=== PATIENT | male | born 1945 | race Caucasian/White ===

== ENCOUNTER → 2016-06-24 | Outpatient (CLI) | payer MEDICARE, OTHER ==
[~2016-06-24] VITALS: Ht 180.3 cm; Wt 106.8 kg
[~2016-06-24] MED LIST: ADVAIR 100/28 DISKU1 IH; AMOXICILLIN 8751 TAB PO; ASPIR-LOW81 MG PO; ASPIRIN 32325 MG/TAB PO; ASPIRIN E.C.325 MG PO; CARDIZEM120 MG PO; CENTRUM SILVER1 TA1 PO; COMBIVENT INH14.7 GM IH; CORDARONE200 MG PO; CORDARONE200 MG/TAB PO; COUMADIN 5MG5 MG/TAB PO; COUMADIN 6MG6 MG/TAB PO; COUMADIN PO; DEMADEX 20MG20 M1 PO; DIGOXIN0.25 MG PO; ELIQUIS 5MG PO; FLECAINIDE PO; FLOVENT 110MCG7.9 GM IH; GUAIFENESIN AND5 ML PO; HYDROCORT CREAM1% TOP; INDERAL PO; KLOR-CON 1010 MEQ PO; LASIX 80MG TABL80 MG PO; LASIX40 MG PO; LEVOTHYROXINE0.05 MG PO; LEVOXYL0.075 MG PO; LISINOPRIL20 MG PO; LISINOPRIL5 MG PO; LOPRESSOR 550 MG/TAB PO; MAG-OX 400400 MG/TAB PO; MEDROL 4MG DOSPA4 MG PO; METHIMAZOLE PO; METOPROLOL25 MG PO; MITIGARE0.6 MG PO; MULTAQ400 MG PO; MVI; NO HOME MEDICATIONS; NORCO 325 MG-51 TAB PO; PERCOCET 325 MG1 TA2 PO; PREDNISONE20 MG PO; PRIL40 PO; PRILOSEC 20MG20 MG PO; SYNTHROID0.05 MG/TA PO; SYNTHROID0.075 MG/T PO; TIKOSYN0.5 MG PO; TOPROL XL 25MG25 MG PO; TOPROL XL50 MG PO; ULORIC40 MG PO; VITAMIN D32000 IU PO; XARELTO20 MG PO; ZYLOPRIM 300MG300 MG PO; [UNRECOGNIZED DRUG - OTHER] PO
[2016-06-24 11:30] VITALS: BP 108/72; PULSE 72
[2016-06-24 12:21] LABS: HEMATOCRIT 37.7 % (42.0-52.0); MEAN CELL VOLUME 79 fl (80.0-100.0); MEAN CORPUSCULAR HGB CONC 31 g/dl (33.0-37.0); MEAN PLATELET VOLUME 9.1 fl (7.4-10.4); PLATELET COUNT 153 K/mm3 (130-400); RED BLOOD COUNT 4.78 M/mm3 (4.20-5.60); REDCELL DISTRIBUTION WIDTH-CV 16.1 % (11.5-14.5); WHITE BLOOD COUNT 6.3 K/mm3 (4.8-10.8)
[2016-06-24 12:28] LABS: HEMOGLOBIN 11.7 g/dl (13.5-18.0); MEAN CORPUSCULAR HEMOGLOBIN 24 pg (27.0-31.0)
[2016-06-24 12:36] LABS: INR 1.4 (0.8-3.0); PROTHROMBIN TIME 15.2 SECONDS (9.7-12.8)
[2016-06-24 12:41] LABS: CALCIUM 8.7 mg/dL (8.4-10.2); CREATININE, serum 0.85 mg/dL (0.66-1.25); POTASSIUM 3.8 mmol/L (3.4-5.0)
[2016-06-24 13:15] VITALS: BP 110/71; PULSE 71
[2016-06-24 13:20] VITALS: BP 114/81; PULSE 74
[2016-06-24 13:30] VITALS: BP 117/82; PULSE 72
[2016-06-24 13:45] VITALS: BP 107/56; PULSE 77
== END ==
LOC: COL.RAD 11:12
PROVIDERS: Internal Medicine Interventional Cardiology
DX: I08.1 Rheumatic disorders of both mitral and tricuspid valves (principal); R94.31 Abnormal electrocardiogram [ECG] [EKG]
CPT/HCPCS: J2250; J2704

== ENCOUNTER → 2016-07-04 | Outpatient (CLI) | payer MEDICARE, OTHER ==
[2016-07-04 10:09] LABS: THYROID STIMULATING HORMONE 4.06 uIU/mL (0.465-4.680)
== END ==
LOC: COL.LAB 07:31
PROVIDERS: Internal Medicine Endocrinology, Diabetes & Metabolism
DX: E89.0 Postprocedural hypothyroidism (principal)

== ENCOUNTER → 2016-07-06 | Outpatient (CLI) | payer MEDICARE, OTHER | LOC: COL.VAS 08:49 | DX: I08.1 Rheumatic disorders of both mitral and tricuspid valves (principal); R94.39 Abnormal result of other cardiovascular function study; R06.02 Shortness of breath ==

== ENCOUNTER 2016-07-11 07:05 | Day surgery (SDC) | payer MEDICARE, OTHER ==
[~2016-07-11] VITALS: Ht 180.3 cm; Wt 104.5 kg
[~2016-07-11 07:05] MED LIST changes: -HYDROCORT CREAM1% TOP; -MITIGARE0.6 MG PO; -SYNTHROID0.075 MG/T PO
[2016-07-11] MEDS ORDERED: SYNTHROID0.075 MG/T PO (07:51)
[2016-07-11] MEDS ORDERED: MITIGARE0.6 MG PO (07:53)
[2016-07-11 07:54] LABS: POTASSIUM 3.9 mmol/L (3.4-5.0)
[2016-07-11 08:01] VITALS: BP 123/77; PULSE 90
[2016-07-11 08:07] LABS: INR 1.4 (0.8-3.0); PROTHROMBIN TIME 15.5 SECONDS (9.7-12.8)
[2016-07-11 08:27] LABS: THYROID STIMULATING HORMONE 4.72 uIU/mL (0.465-4.680)
[2016-07-11 10:57] VITALS: BP 109/69; PULSE 60
[2016-07-11] MEDS ORDERED: HYDROCORT CREAM1% TOP (11:26)
[2016-07-11 11:35] VITALS: BP 115/68; PULSE 65
== END 2016-07-11 11:48 | disposition home or self-care (01) ==
LOC: EUO 07:05
PROVIDERS: Internal Medicine Interventional Cardiology
DX: I48.91 Unspecified atrial fibrillation (principal); R06.02 Shortness of breath; I27.2 Other secondary pulmonary hypertension; R60.0 Localized edema; I05.0 Rheumatic mitral stenosis; Z95.818 Presence of other cardiac implants and grafts
CPT/HCPCS: G9654; J2704; J7030

== ENCOUNTER → 2016-08-09 | Outpatient (CLI) | payer MEDICARE, OTHER ==
[~2016-08-09] MED LIST changes: +HYDROCORT CREAM1% TOP; +MITIGARE0.6 MG PO; +SYNTHROID0.075 MG/T PO
[2016-08-09 08:21] LABS: THYROID STIMULATING HORMONE 3.5 uIU/mL (0.465-4.680)
== END ==
LOC: COL.LAB 06:53
PROVIDERS: Internal Medicine Endocrinology, Diabetes & Metabolism
DX: E89.0 Postprocedural hypothyroidism (principal)

== ENCOUNTER → 2016-10-10 | Outpatient (CLI) | payer MEDICARE, OTHER ==
[2016-10-10 09:18] LABS: THYROID STIMULATING HORMONE 4.1 uIU/mL (0.465-4.680)
== END ==
LOC: COL.LAB 07:42
PROVIDERS: Internal Medicine Endocrinology, Diabetes & Metabolism
DX: E89.0 Postprocedural hypothyroidism (principal)

== ENCOUNTER → 2017-02-28 | Outpatient (CLI) | payer MEDICARE, OTHER ==
[2017-02-28 07:26] LABS: THYROID STIMULATING HORMONE 1.86 uIU/mL (0.465-4.680)
== END ==
LOC: COL.LAB 06:17
PROVIDERS: Internal Medicine Endocrinology, Diabetes & Metabolism
DX: E89.0 Postprocedural hypothyroidism (principal)

== ENCOUNTER → 2017-06-22 | Outpatient (CLI) | payer MEDICARE, OTHER ==
[2017-06-22 07:10] LABS: MEAN CELL VOLUME 73 fl (80.0-100.0); MEAN CORPUSCULAR HGB CONC 29 g/dl (33.0-37.0); MEAN PLATELET VOLUME 9.2 fl (7.4-10.4); PLATELET COUNT 164 K/mm3 (130-400); RED BLOOD COUNT 4.32 M/mm3 (4.20-5.60); REDCELL DISTRIBUTION WIDTH-CV 17.6 % (11.5-14.5)
[2017-06-22 07:17] LABS: HEMATOCRIT 31.5 % (42.0-52.0); MEAN CORPUSCULAR HEMOGLOBIN 21 pg (27.0-31.0)
[2017-06-22 07:28] LABS: ALBUMIN 4.1 gm/dL (3.5-5.0); BILIRUBIN,TOTAL 0.5 mg/dL (0.0-1.0); CALCIUM 8.7 mg/dL (8.4-10.2); CREATININE, serum 1.46 mg/dL (0.66-1.25); POTASSIUM 4.4 mmol/L (3.4-5.0); TOTAL PROTEIN 6.7 gm/dL (6.4-8.2)
[2017-06-22 07:58] LABS: THYROID STIMULATING HORMONE 0.898 uIU/mL (0.465-4.680)
== END ==
LOC: COL.LAB 06:17
PROVIDERS: Internal Medicine Endocrinology, Diabetes & Metabolism
DX: E89.0 Postprocedural hypothyroidism (principal); E06.3 Autoimmune thyroiditis; I48.91 Unspecified atrial fibrillation; F41.0 Panic disorder [episodic paroxysmal anxiety]

== ENCOUNTER → 2018-02-07 | Outpatient (CLI) | payer MEDICARE, OTHER ==
[2018-02-07 08:23] LABS: THYROID STIMULATING HORMONE 0.535 uIU/mL (0.465-4.680)
== END ==
LOC: COL.LAB 07:02
PROVIDERS: Internal Medicine Endocrinology, Diabetes & Metabolism
DX: E03.9 Hypothyroidism, unspecified (principal)

== ENCOUNTER → 2018-10-02 | Outpatient (CLI) | payer MEDICARE, OTHER ==
[2018-10-02 07:39] LABS: BASO % 0.4 % (0.0-2.0); EOS # 0.1 (0.0-0.7); EOS % 2.1 % (0-4.0); GRAN # 3.6 (1.4-6.5); HEMATOCRIT 43.2 % (42.0-52.0); HEMOGLOBIN 14.5 g/dl (13.5-18.0); LYMPH % 18.6 % (20.0-51.0); MEAN CELL VOLUME 89 fl (80.0-100.0); MEAN CORPUSCULAR HEMOGLOBIN 30 pg (27.0-31.0); MEAN CORPUSCULAR HGB CONC 34 g/dl (33.0-37.0); MEAN PLATELET VOLUME 8.7 fl (7.4-10.4); MONO # 0.4 (0.1-0.6); MONO % 8.5 % (1.7-9.3); PLATELET COUNT 120 K/mm3 (130-400); RED BLOOD COUNT 4.87 M/mm3 (4.20-5.60); REDCELL DISTRIBUTION WIDTH-CV 13.2 % (11.5-14.5)
[2018-10-02 07:55] LABS: ALBUMIN 4.4 gm/dL (3.5-5.0); BILIRUBIN,TOTAL 0.7 mg/dL (0.0-1.0); CALCIUM 9.3 mg/dL (8.4-10.2); CHOLESTEROL RISK RATIO 3.2; CREATININE, serum 0.87 (0.66-1.25); POTASSIUM 4.5 mmol/L (3.4-5.0); TOTAL PROTEIN 7.8 gm/dL (6.4-8.2)
[2018-10-02 08:30] LABS: PSA-TOTAL 3.5 ng/mL (0-4)
[2018-10-02 09:22] LABS: THYROID STIMULATING HORMONE 1.33 uIU/mL (0.465-4.680)
== END ==
LOC: COL.LAB 07:11
PROVIDERS: Emergency Medicine
DX: Z12.6 Encounter for screening for malignant neoplasm of bladder (principal); I48.1 Persistent atrial fibrillation; E05.90 Thyrotoxicosis, unspecified without thyrotoxic crisis or storm; E04.1 Nontoxic single thyroid nodule; J44.9 Chronic obstructive pulmonary disease, unspecified; Z95.2 Presence of prosthetic heart valve; Z79.899 Other long term (current) drug therapy
CPT/HCPCS: G0103

== ENCOUNTER → 2019-05-08 | Outpatient (CLI) | payer MEDICARE, OTHER ==
[2019-05-08 12:35] LABS: HEMOGLOBIN 13.2 g/dl (13.5-18.0); MEAN CELL VOLUME 86 fl (80.0-100.0); MEAN CORPUSCULAR HEMOGLOBIN 28 pg (27.0-31.0); MEAN CORPUSCULAR HGB CONC 33 g/dl (33.0-37.0); MEAN PLATELET VOLUME 9.1 fl (7.4-10.4); PLATELET COUNT 162 K/mm3 (130-400); RED BLOOD COUNT 4.67 M/mm3 (4.20-5.60)
[2019-05-08 12:40] LABS: ALBUMIN 4.4 gm/dL (3.5-5.0); BILIRUBIN,TOTAL 0.7 mg/dL (0.0-1.0); CALCIUM 8.8 mg/dL (8.4-10.2); CREATININE, serum 0.9 (0.66-1.25); POTASSIUM 4.3 mmol/L (3.4-5.0); TOTAL PROTEIN 7.6 gm/dL (6.4-8.2)
== END ==
LOC: COL.LAB 11:20
PROVIDERS: Surgery
DX: Z01.818 Encounter for other preprocedural examination (principal)

== ENCOUNTER → 2019-06-10 | Outpatient (CLI) | payer MEDICARE, OTHER | LOC: COL.LAB 08:14 | DX: E89.0 Postprocedural hypothyroidism (principal) ==

== ENCOUNTER 2020-07-13 12:11 | Emergency (ER) | payer MEDICARE, OTHER ==
[~2020-07-13] VITALS: Ht 180.3 cm; Wt 94.5 kg
[~2020-07-13 12:11] MED LIST changes: -PRIL40 PO
[2020-07-13 12:41] VITALS: TEMP 98.1
[2020-07-13 13:42] LABS: BASO % 0.3 % (0.0-2.0); EOS % 0.2 % (0-4.0); GRAN # 8.2 (1.4-6.5); GRAN % 81.5 % (42.2-75.2); HEMOGLOBIN 11.4 g/dl (13.5-18.0); LYMPH # 0.7 (1.2-3.4); LYMPH % 7.1 % (20.0-51.0); MEAN CELL VOLUME 77 fl (80.0-100.0); MEAN CORPUSCULAR HEMOGLOBIN 25 pg (27.0-31.0); MEAN CORPUSCULAR HGB CONC 32 g/dl (33.0-37.0); MEAN PLATELET VOLUME 8.7 fl (7.4-10.4); MONO # 1.1 (0.1-0.6); MONO % 10.6 % (1.7-9.3); PLATELET COUNT 188 K/mm3 (130-400); RED BLOOD COUNT 4.63 M/mm3 (4.20-5.60)
[2020-07-13 13:55] LABS: ALANINE AMINOTRANSFERASE 16 U/L (4-49); ALBUMIN 4.2 gm/dL (3.5-5.0); ALKALINE PHOSPHATASE 68 U/L (50-136); ANION GAP 8 mmol/L (7-16); AST,SGOT 20 U/L (15-37); BILIRUBIN,TOTAL 1.3 mg/dL (0.0-1.0); BLOOD UREA NITROGEN 16 mg/dL (9-20); CALCIUM 8.6 mg/dL (8.4-10.2); CARBON DIOXIDE 28 mmol/L (22-30); CHLORIDE 97 mmol/L (98-107); GLUCOSE 127 mg/dL (74-106); HEMATOCRIT 35.5 % (42.0-52.0); POTASSIUM 3.7 mmol/L (3.4-5.0); SODIUM 132 mmol/L (137-145); TOTAL PROTEIN 7.2 gm/dL (6.4-8.2)
[2020-07-13 14:11] LABS: TROPONIN-I < 0.012 ng/mL (0.000-0.035)
[2020-07-13 15:47] VITALS: BP 141/78; PULSE 73
== END 2020-07-13 15:47 | disposition home or self-care (01) ==
LOC: COL.ER 12:11
PROVIDERS: Physician Assistant
DX: R07.89 Other chest pain (principal); I48.91 Unspecified atrial fibrillation; I27.20 Pulmonary hypertension, unspecified; Z79.01 Long term (current) use of anticoagulants
CPT/HCPCS: Q9967

== ENCOUNTER 2020-08-04 09:13 | Outpatient (CLI) | payer MEDICARE, OTHER ==
[~2020-08-04] VITALS: Ht 180.3 cm; Wt 97.0 kg
[2020-08-04] VITALS (12 sets, daily range): BP systolic 107–146; BP diastolic 68–89; PULSE 63–72; TEMP 98.5
[2020-08-04 10:05] LABS: HEMOGLOBIN 10.8 g/dl (13.5-18.0); MEAN CELL VOLUME 78 fl (80.0-100.0); MEAN CORPUSCULAR HEMOGLOBIN 24 pg (27.0-31.0); MEAN CORPUSCULAR HGB CONC 31 g/dl (33.0-37.0); MEAN PLATELET VOLUME 8.7 fl (7.4-10.4); PLATELET COUNT 172 K/mm3 (130-400); REDCELL DISTRIBUTION WIDTH-CV 15.6 % (11.5-14.5)
[2020-08-04] MEDS ORDERED: REVATIO20 MG PO (10:08)
[2020-08-04 10:11] LABS: HEMATOCRIT 35.3 % (42.0-52.0)
[2020-08-04 10:12] LABS: CALCIUM 8.3 mg/dL (8.4-10.2); CREATININE, serum 0.73 (0.66-1.25); POTASSIUM 4.5 mmol/L (3.4-5.0)
[2020-08-04 10:13] LABS: INR 1.1 (0.8-3.0); PROTHROMBIN TIME 12.4 SECONDS (9.7-12.8)
--- NOTE | 2020-08-04 10:53 | NUR ---
1051 - SANDIP JULES,CLICKING MACHINE OPERATOR, DA, BAG TESTER & THIS RN AT BEDSIDE FOR PROCEDURE. TIME OUT COMPLETED. 1053 - CHARLA PROBE INSERTED 1102 - CHARLA PROBE REMOVED 1105 - CLICKING MACHINE OPERATOR TURNS RECOVERY OVER TO THIS RN.
--- NOTE | 2020-08-04 11:20 | NUR ---
Pt is awake and alert after CHARLA. pt care assumed from Kay GORDILLO, bs report received. Pt aware of POC. Water given, no trouble swallowing. wctm.
[2020-08-04] MEDS ORDERED: ALDACTONE 25MG25 M1 PO (14:23)
[2020-08-04] MEDS ORDERED: KLOR-CON 1010 MEQ PO (14:24)
--- NOTE | 2020-08-04 14:40 | NUR ---
Pt ready for discharge. Dr. Guerra has been in to discuss test result and poc with pt who verbalizes understanding. The patient and I have reviewed all written instructions and again the pt has no questions at his departure. IV is dc'd with cath intact, dressing applied. Pt to exit via wheelchair. Johnna Dill here to pick pt up.
== END 2020-08-04 14:45 | disposition home or self-care (01) ==
LOC: COL.RAD
PROVIDERS: Internal Medicine Cardiovascular Disease
DX: I34.2 Nonrheumatic mitral (valve) stenosis (principal); I51.7 Cardiomegaly
CPT/HCPCS: J2704

== ENCOUNTER 2020-08-23 06:58 | Emergency (ER) | payer MEDICARE, OTHER ==
[~2020-08-23] VITALS: Ht 180.3 cm; Wt 94.1 kg
[~2020-08-23 06:58] MED LIST changes: +ALDACTONE 25MG25 M1 PO; +REVATIO20 MG PO
[2020-08-23 07:06] VITALS: TEMP 97.7
[2020-08-23 07:25] LABS: BASO % 0.4 % (0.0-2.0); EOS # 0.1 (0.0-0.7); EOS % 1.3 % (0-4.0); GRAN % 72.4 % (42.2-75.2); LYMPH # 1.1 (1.2-3.4); LYMPH % 15.2 % (20.0-51.0); MEAN CELL VOLUME 78 fl (80.0-100.0); MEAN CORPUSCULAR HEMOGLOBIN 24 pg (27.0-31.0); MEAN CORPUSCULAR HGB CONC 31 g/dl (33.0-37.0); MEAN PLATELET VOLUME 8.4 fl (7.4-10.4); MONO # 0.7 (0.1-0.6); MONO % 10.3 % (1.7-9.3); PLATELET COUNT 168 K/mm3 (130-400); REDCELL DISTRIBUTION WIDTH-CV 15.9 % (11.5-14.5)
[2020-08-23 07:35] LABS: CALCIUM 8.3 mg/dL (8.4-10.2); CREATININE, serum 0.74 (0.66-1.25); POTASSIUM 3.9 mmol/L (3.4-5.0)
[2020-08-23 07:39] LABS: PROTHROMBIN TIME 11.7 SECONDS (9.7-12.8)
[2020-08-23 07:42] LABS: PARTIAL THROMBOPLASTIN TIME 28.6 SECONDS (26.0-37.0)
[2020-08-23 08:09] LABS: TROPONIN-I < 0.012 ng/mL (0.000-0.035)
[2020-08-23] MEDS ORDERED: ELIQUIS 5MG PO (08:51)
[2020-08-23] MEDS ORDERED: CLEOCIN HC150 MG/CAP PO (09:06)
[2020-08-23] MEDS ORDERED: TYLENOL 325MG325 MG PO (09:06)
[2020-08-23 09:15] VITALS: BP 122/69; PULSE 67
== END 2020-08-23 09:15 | disposition home or self-care (01) ==
LOC: COL.ER 06:58
PROVIDERS: Emergency Medicine
DX: R79.1 Abnormal coagulation profile (principal); M25.562 Pain in left knee; I48.92 Unspecified atrial flutter
CPT/HCPCS: Q9967

== ENCOUNTER → 2020-08-24 | Outpatient (CLI) | payer MEDICARE, OTHER ==
[~2020-08-24] MED LIST changes: +CLEOCIN HC150 MG/CAP PO; +TYLENOL 325MG325 MG PO
== END ==
LOC: COL.VAS 08:35
DX: M79.662 Pain in left lower leg (principal); R79.1 Abnormal coagulation profile

== ENCOUNTER 2020-08-27 05:58 | Emergency (ER) | payer MEDICARE, OTHER ==
[~2020-08-27] VITALS: Ht 180.3 cm; Wt 94.1 kg
[2020-08-27 06:12] VITALS: BP 125/66; TEMP 97.2
== END 2020-08-27 07:25 | disposition home or self-care (01) ==
LOC: COL.ER 05:58
DX: I82.432 Acute embolism and thrombosis of left popliteal vein (principal); I27.20 Pulmonary hypertension, unspecified; Z95.4 Presence of other heart-valve replacement; Z95.9 Presence of cardiac and vascular implant and graft, unspecified; Z79.01 Long term (current) use of anticoagulants; Z79.890 Hormone replacement therapy

== ENCOUNTER → 2021-02-03 | Outpatient (CLI) | payer MEDICARE, OTHER ==
[2021-02-03 13:54] LABS: ALBUMIN 4.2 gm/dL (3.5-5.0); CALCIUM 8.2 mg/dL (8.4-10.2); CHOLESTEROL RISK RATIO 3.4; CREATININE, serum 0.82 (0.66-1.25); POTASSIUM 3.7 mmol/L (3.4-5.0); TOTAL PROTEIN 7.3 gm/dL (6.4-8.2)
[2021-02-03 15:21] LABS: TSH w REFLEX 2.303 uIU/mL (0.350-4.940)
[2021-02-03 23:40] LABS: HEPATITIS C VIRUS ANTIBODY Negative (Negative)
== END ==
LOC: COL.LAB 12:45
DX: Z00.00 Encounter for general adult medical examination without abnormal findings (principal); E89.0 Postprocedural hypothyroidism
CPT/HCPCS: 87522

== ENCOUNTER 2021-11-13 13:40 | Emergency (ER) | payer MEDICARE, OTHER ==
[~2021-11-13] VITALS: Ht 180.3 cm; Wt 97.7 kg
[2021-11-13 13:53] VITALS: TEMP 98.5
[2021-11-13 14:17] LABS: COLLECTION METHOD CLEAN CATCH
[2021-11-13 14:17] LABS: HEMATOCRIT 41.8 % (42.0-52.0); HEMOGLOBIN 13.7 g/dl (13.5-18.0); MEAN CELL VOLUME 82 fl (80.0-100.0); MEAN CORPUSCULAR HEMOGLOBIN 27 pg (27-31); MEAN CORPUSCULAR HGB CONC 33 g/dl (33.0-37.0); MEAN PLATELET VOLUME 8.5 fl (7.4-10.4); PLATELET COUNT 163 K/mm3 (130-400); RED BLOOD COUNT 5.13 M/mm3 (4.20-5.60); REDCELL DISTRIBUTION WIDTH-CV 15.3 % (11.5-14.5)
[2021-11-13 14:24] LABS: PH 6 (5-8); SQUAMOUS EPITHELIAL 0-2 /hpf (0-10); URINE APPEARANCE Clear (CLEAR/HAZY); URINE BACTERIA None Seen /hpf (NONE SEEN); URINE BILIRUBIN Negative (NEGATIVE); URINE BLOOD 1+ (NEGATIVE); URINE COLOR Amber (YELLOW); URINE GLUCOSE Negative (NEGATIVE); URINE KETONE Negative (NEGATIVE); URINE LEUKOCYTE ESTERASE Negative (NEGATIVE); URINE NITRATE Negative (NEGATIVE); URINE PROTEIN(semi-quant) 1+ (NEGATIVE); URINE UROBILINOGEN >=4.0 (NEGATIVE)
[2021-11-13 14:36] LABS: BILIRUBIN,TOTAL 1.6 mg/dL (0.2-1.2); C-REACTIVE PROTEIN 3.26 mg/dL (0.00-0.50); CALCIUM 8.8 mg/dL (8.4-10.2); CREATININE, serum 0.79 mg/dL (0.72-1.25); POTASSIUM 4.1 mmol/L (3.5-4.5); TOTAL PROTEIN 7.9 gm/dL (6.2-8.1)
[2021-11-13 14:54] LABS: BAND 21 % (0-10); LYMPHOCYTE 5 % (20.0-51.0); NEUTROPHILS 68 % (42.0-75.2); PLATELET ESTIMATE NORMAL (NORMAL)
[2021-11-13] MEDS ORDERED: AMOXICILLIN 8751 TAB PO (16:27)
[2021-11-13 16:46] VITALS: BP 148/78; PULSE 85
== END 2021-11-13 16:53 | disposition home or self-care (01) ==
LOC: COL.ER 13:40
PROVIDERS: Nurse Practitioner Primary Care
DX: K40.90 Unilateral inguinal hernia, without obstruction or gangrene, not specified as recurrent (principal); K57.92 Diverticulitis of intestine, part unspecified, without perforation or abscess without bleeding; D72.829 Elevated white blood cell count, unspecified
CPT/HCPCS: J2405; J7030; Q9967

== ENCOUNTER 2021-12-11 18:18 | Outpatient (RCR) | payer MEDICARE, OTHER ==
[~2021-12-11] VITALS: Ht 180.3 cm; Wt 85.0 kg
[~2021-12-11 18:18] MED LIST changes: +COLCRYS0.6 MG PO; +DIFLUCAN200 MG PO; +K-DUR 10 MEQ T10 MEQ PO; +MAXIPIME2 GM IV
[2021-12-12] MEDS ORDERED: LUNESTA 1MG TAB1 MG (07:41)
[2021-12-21 08:56] VITALS: BP 121/54; PULSE 65; TEMP 98.3
[2021-12-22 11:40] VITALS: BP 110/62; PULSE 77; TEMP 98.7
== END 2021-12-22 12:41 ==
LOC: EUO 12-21 07:00
DX: K57.20 Diverticulitis of large intestine with perforation and abscess without bleeding (principal)

== ENCOUNTER 2021-12-14 07:00 | Outpatient (RCR) | payer MEDICARE, OTHER ==
[2021-12-01 07:11] VITALS: BP 125/70; PULSE 76; TEMP 98.2
[2021-12-01 18:19] VITALS: BP 124/70; PULSE 83; TEMP 98.5
[2021-12-02 07:34] VITALS: BP 112/67; PULSE 61; TEMP 97.9
[2021-12-03 07:26] VITALS: BP 108/66; PULSE 72; TEMP 98.2
[2021-12-03 18:10] VITALS: BP 110/59; PULSE 80; TEMP 97.6
[2021-12-03 18:33] LABS: HEMOGLOBIN 10.7 g/dl (13.5-18.0); MEAN CELL VOLUME 83 fl (80.0-100.0); MEAN CORPUSCULAR HEMOGLOBIN 27 pg (27-31); MEAN CORPUSCULAR HGB CONC 32 g/dl (33.0-37.0); MEAN PLATELET VOLUME 8.6 fl (7.4-10.4); PLATELET COUNT 181 K/mm3 (130-400); RED BLOOD COUNT 3.99 M/mm3 (4.20-5.60); REDCELL DISTRIBUTION WIDTH-CV 15.2 % (11.5-14.5)
[2021-12-03 18:36] LABS: HEMATOCRIT 33.2 % (42.0-52.0)
[2021-12-03 18:48] LABS: CALCIUM 8.3 mg/dL (8.4-10.2); CREATININE, serum 0.71 mg/dL (0.72-1.25); POTASSIUM 4.1 mmol/L (3.5-4.5)
[2021-12-04 07:19] VITALS: BP 120/75; PULSE 66; TEMP 94.5
[2021-12-05 07:11] VITALS: BP 125/66; PULSE 74; TEMP 97.7
[2021-12-06 07:23] VITALS: BP 115/68; PULSE 84; TEMP 97.7
[2021-12-06 07:23] LABS: HEMOGLOBIN 10.5 g/dl (13.5-18.0); MEAN CELL VOLUME 83 fl (80.0-100.0); MEAN CORPUSCULAR HEMOGLOBIN 27 pg (27-31); MEAN CORPUSCULAR HGB CONC 33 g/dl (33.0-37.0); PLATELET COUNT 149 K/mm3 (130-400); RED BLOOD COUNT 3.83 M/mm3 (4.20-5.60); REDCELL DISTRIBUTION WIDTH-CV 15.4 % (11.5-14.5)
[2021-12-06 07:24] LABS: HEMATOCRIT 31.8 % (42.0-52.0)
[2021-12-06 07:41] LABS: BILIRUBIN,TOTAL 0.7 mg/dL (0.2-1.2); C-REACTIVE PROTEIN 6.31 mg/dL (0.00-0.50); CALCIUM 8.5 mg/dL (8.4-10.2); CREATININE, serum 0.67 mg/dL (0.72-1.25); POTASSIUM 3.6 mmol/L (3.5-4.5); TOTAL PROTEIN 6.7 gm/dL (6.2-8.1)
[2021-12-06 08:06] LABS: ERYTHROCYTE SEDIMENTATION RATE 24 mm/hr (0-30)
[2021-12-06 18:14] VITALS: BP 114/67; PULSE 84; TEMP 97.9
[2021-12-07 07:43] VITALS: BP 100/66; PULSE 68
[2021-12-07 18:26] VITALS: BP 111/59; PULSE 77; TEMP 98.5
[2021-12-08 07:16] VITALS: BP 107/57; PULSE 85; TEMP 97.6
[2021-12-08 18:35] VITALS: BP 113/69; PULSE 78; TEMP 98.4
[2021-12-09 08:35] VITALS: BP 106/68; PULSE 74; TEMP 97.9
[2021-12-10 07:26] VITALS: BP 105/72; PULSE 90; TEMP 97.4
[2021-12-11 07:31] VITALS: BP 112/67; PULSE 73; TEMP 98
[2021-12-12 07:34] VITALS: BP 109/70; PULSE 77; TEMP 97.8
[2021-12-12 18:47] VITALS: BP 97/62; PULSE 95; TEMP 98
[2021-12-13 07:27] VITALS: BP 106/51; PULSE 78; TEMP 98.4
[2021-12-13 18:26] LABS: HEMOGLOBIN 10.3 g/dl (13.5-18.0); MEAN CELL VOLUME 79 fl (80.0-100.0); MEAN CORPUSCULAR HEMOGLOBIN 27 pg (27-31); MEAN CORPUSCULAR HGB CONC 33 g/dl (33.0-37.0); MEAN PLATELET VOLUME 8.7 fl (7.4-10.4); PLATELET COUNT 193 K/mm3 (130-400); RED BLOOD COUNT 3.88 M/mm3 (4.20-5.60); REDCELL DISTRIBUTION WIDTH-CV 14.9 % (11.5-14.5)
[2021-12-13 18:28] VITALS: BP 117/69; PULSE 73; TEMP 99.4
[2021-12-13 18:31] LABS: HEMATOCRIT 30.8 % (42.0-52.0)
[2021-12-13 18:37] LABS: CALCIUM 8.5 mg/dL (8.4-10.2); CREATININE, serum 0.69 mg/dL (0.72-1.25); POTASSIUM 3.1 mmol/L (3.5-4.5)
[~2021-12-14] VITALS: Ht 180.3 cm; Wt 92.5 kg
[~2021-12-14 07:00] MED LIST changes: +LUNESTA 1MG TAB1 MG
[2021-12-14 07:06] LABS: CLOSTRIDIUM DIFF A/B POS
[2021-12-14 07:09] LABS: CLOSTRIDIUM DIFF A/B INTERP Toxigenic C.diff POS
[2021-12-14 07:58] VITALS: BP 108/69; PULSE 82; TEMP 98.6
[2021-12-14 18:09] VITALS: BP 97/75; PULSE 69; TEMP 98.8
[2021-12-14 18:10] VITALS: BP 98/72; PULSE 72; TEMP 98.6
== END 2021-12-19 | disposition home or self-care (01) ==
LOC: EUO
PROVIDERS: Internal Medicine; Personal Emergency Response Attendant; Surgery
DX: Z79.899 Other long term (current) drug therapy (principal)
CPT/HCPCS: J0692

== ENCOUNTER 2022-01-14 08:19 | Outpatient (CLI) | payer MEDICARE, OTHER ==
[~2022-01-14] VITALS: Ht 180.3 cm; Wt 89.9 kg
[2022-01-14 08:50] VITALS: BP 117/65; PULSE 54; TEMP 98.7
[2022-01-14] MEDS ORDERED: ALDACTONE 25MG25 M1 PO (09:17)
[2022-01-14] MEDS ORDERED: LASIX 40MG TABL40 MG PO (09:18)
[2022-01-14 09:19] LABS: BASO % 0.4 % (0.0-2.0); EOS # 0.1 K/mm3 (0.0-0.7); EOS % 1.3 % (0.0-4.0); GRAN # 5.2 K/mm3 (1.4-6.5); GRAN % 76.8 % (42.2-75.2); LYMPH # 0.6 K/mm3 (1.2-3.4); LYMPH % 8.6 % (20.0-51.0); MEAN CELL VOLUME 84 fl (80.0-100.0); MEAN CORPUSCULAR HEMOGLOBIN 27 pg (27-31); MEAN CORPUSCULAR HGB CONC 33 g/dl (33.0-37.0); MEAN PLATELET VOLUME 8.8 fl (7.4-10.4); MONO # 0.8 K/mm3 (0.1-0.6); MONO % 12.5 % (1.7-9.3); PLATELET COUNT 148 K/mm3 (130-400); RED BLOOD COUNT 3.65 M/mm3 (4.20-5.60); REDCELL DISTRIBUTION WIDTH-CV 18.8 % (11.5-14.5)
[2022-01-14] MEDS ORDERED: K-DUR 10 MEQ T10 MEQ PO (09:19)
[2022-01-14 09:20] LABS: HEMATOCRIT 30.8 % (42.0-52.0)
[2022-01-14 09:21] LABS: INR 1.5 (0.8-3.0); PROTHROMBIN TIME 17.2 SECONDS (9.7-12.8)
[2022-01-14 09:29] LABS: CALCIUM 8.6 mg/dL (8.4-10.2); CREATININE, serum 0.78 mg/dL (0.72-1.25)
[2022-01-14 10:30] VITALS: BP 97/58; PULSE 52
--- NOTE | 2022-01-14 10:30 | NUR ---
Pt care assumed, report received from April RN. Pt is awake and alert, using cell phone, pwd, resp reg and unlabored. pt aware of poc for monitoring for about 1 hour post procedure. Aniyah, pt's sig other, brought to bedside.
[2022-01-14] MEDS ORDERED: ASPIRIN E.C. 8181 MG PO (10:35)
[2022-01-14 10:45] VITALS: BP 104/62; PULSE 51
[2022-01-14 11:00] VITALS: BP 109/60; PULSE 51
[2022-01-14 11:15] VITALS: BP 115/60; PULSE 54
--- NOTE | 2022-01-14 11:30 | NUR ---
Pt is ready for discharge. I have reviewed dc/rx and fu instructions with pt and Aniyah. Pt verbalized understanding. to exit via wheelchair.
== END 2022-01-14 12:01 | disposition home or self-care (01) ==
LOC: COL.RAD 08:19
PROVIDERS: Internal Medicine Cardiovascular Disease
DX: I08.1 Rheumatic disorders of both mitral and tricuspid valves (principal); Z95.2 Presence of prosthetic heart valve

== ENCOUNTER 2022-07-19 07:55 | Outpatient (RCR) | payer MEDICARE, OTHER ==
[~2022-07-19] VITALS: Ht 180.3 cm; Wt 95.0 kg
[~2022-07-19 07:55] MED LIST changes: +ASPIRIN E.C. 8181 MG PO; +BENICAR40 MG PO; +LASIX 40MG TABL40 MG PO
[2022-07-19 08:44] VITALS: BP 137/81; PULSE 77; TEMP 98.3
== END 2022-07-19 15:52 | disposition still patient (30) ==
LOC: EUO 07:55
DX: Z51.81 Encounter for therapeutic drug level monitoring (principal)
CPT/HCPCS: J1756

== ENCOUNTER 2022-07-29 08:00 | Outpatient (RCR) | payer MEDICARE, OTHER ==
[2022-07-21 08:00] VITALS: BP 127/75; PULSE 65; TEMP 97.7
[2022-07-25 08:09] VITALS: BP 130/73; PULSE 63; TEMP 98
[2022-07-27 08:06] VITALS: BP 120/72; PULSE 63; TEMP 98.1
[~2022-07-29] VITALS: Ht 180.3 cm; Wt 95.0 kg
[2022-07-29 07:45] VITALS: BP 137/79; PULSE 79; TEMP 97.9
--- NOTE | 2022-07-29 08:20 | NUR ---
PT INFUSION FINISHED WITH NO ISSUES. IV D/C'D
== END 2022-07-29 08:20 | disposition home or self-care (01) ==
LOC: EUO 08:00
DX: Z51.81 Encounter for therapeutic drug level monitoring (principal); Z79.899 Other long term (current) drug therapy
CPT/HCPCS: J1756

== ENCOUNTER → 2022-08-04 | Outpatient (CLI) | payer MEDICARE, OTHER | LOC: COL.RAD 06:53 | DX: K57.33 Diverticulitis of large intestine without perforation or abscess with bleeding (principal); N32.89 Other specified disorders of bladder; D73.89 Other diseases of spleen; K80.20 Calculus of gallbladder without cholecystitis without obstruction; I51.7 Cardiomegaly; R59.0 Localized enlarged lymph nodes | CPT/HCPCS: Q9967 ==

== ENCOUNTER → 2022-10-19 | Outpatient (REF) | payer MEDICARE, OTHER ==
[~2022-10-19] MED LIST changes: +ROXICODONE 55 MG/TAB PO
== END ==
LOC: ZCOL.LAB 11:06
DX: E89.0 Postprocedural hypothyroidism (principal)

== ENCOUNTER 2023-06-02 16:18 | Inpatient (IN) | payer MEDICARE, OTHER ==
[~2023-06-02] VITALS: Ht 180.3 cm; Wt 85.4 kg
[~2023-06-02 16:18] MED LIST changes: +ALDACTONE50 MG PO; +ALEVE 220MG220 MG PO; +K-TAB20 PO; +MAGNESIUM200 MG PO; +NATURAL E400 IU PO; +VITAMIN B12 781 TAB PO; +ZYRTEC 10MG10 MG PO
[2023-06-02 16:27] VITALS: BP 151/91; PULSE 87; TEMP 98.1
[2023-06-02] MEDS ORDERED: Polyethylene Glycol 3350 17 GM PDS PO PRN (16:30)
[2023-06-02] MEDS ORDERED: Docusate Sodium 100 MG CAP PO PRN (16:30)
[2023-06-02] MEDS ORDERED: Furosemide 100 MG in NS 100 ML IV SCH (16:30)
[2023-06-02] MEDS ORDERED: metOLazone 2.5 MG TAB PO SCH (16:30)
[2023-06-02] MEDS ORDERED: Acetaminophen 325 MG TAB PO PRN (16:30)
[2023-06-02] MEDS ORDERED: Ondansetron 4 MG/2 ML VIAL IV PRN (16:30)
[2023-06-02 17:00] VITALS: BP_SYST 151
[2023-06-02 18:35] LABS: BASO % 0.4 % (0.0-2.0); EOS # 0.1 K/mm3 (0.0-0.7); EOS % 1.9 % (0.0-4.0); GRAN # 3.9 K/mm3 (1.4-6.5); GRAN % 73.6 % (42.2-75.2); HEMOGLOBIN 10.1 g/dl (13.5-18.0); LYMPH # 0.7 K/mm3 (1.2-3.4); LYMPH % 13.9 % (20.0-51.0); MEAN CELL VOLUME 87 fl (80.0-100.0); MEAN CORPUSCULAR HEMOGLOBIN 27 pg (27-31); MEAN CORPUSCULAR HGB CONC 31 g/dl (33.0-37.0); MEAN PLATELET VOLUME 10.5 fl (7.4-10.4); MONO # 0.5 K/mm3 (0.1-0.6); MONO % 9.8 % (1.7-9.3); PLATELET COUNT 122 K/mm3 (130-400); RED BLOOD COUNT 3.79 M/mm3 (4.20-5.60); REDCELL DISTRIBUTION WIDTH-CV 14.8 % (11.5-14.5)
[2023-06-02 18:37] LABS: HEMATOCRIT 32.9 % (42.0-52.0)
[2023-06-02 18:46] LABS: ALBUMIN 3.5 gm/dL (3.4-4.8); BILIRUBIN,TOTAL 1.3 mg/dL (0.2-1.2); CREATININE, serum 0.75 mg/dL (0.72-1.25); POTASSIUM 3.2 mmol/L (3.5-4.5); TOTAL PROTEIN 6.7 gm/dL (6.2-8.1)
[2023-06-02] MEDS ORDERED: Potassium Bicarbonate/Citrate 20 MEQ Effervescent TAB PO SCH (19:45)
[2023-06-02] MEDS ORDERED: *Potassium Replacement Protocol MC SCH (19:45)
[2023-06-02 19:55] VITALS: BP 142/78; PULSE 92; TEMP 97.7
[2023-06-02 20:05] VITALS: BP_SYST 142
[2023-06-02] MEDS ORDERED: Amiodarone 200 MG TAB PO SCH (21:00)
[2023-06-02 23:24] VITALS: BP 145/71; PULSE 78; TEMP 98
[2023-06-03] VITALS (12 sets, daily range): BP systolic 115–145; BP diastolic 68–84; PULSE 69–76; TEMP 97.6–98
[2023-06-03] MEDS ORDERED: Omeprazole 20 MG **** subs to Pantoprazole 40 MG PO SCH (07:00)
[2023-06-03 07:17] LABS: BASO % 0.8 % (0.0-2.0); EOS # 0.2 K/mm3 (0.0-0.7); EOS % 2.9 % (0.0-4.0); GRAN # 3.7 K/mm3 (1.4-6.5); GRAN % 71.3 % (42.2-75.2); HEMOGLOBIN 10.1 g/dl (13.5-18.0); LYMPH # 0.8 K/mm3 (1.2-3.4); LYMPH % 14.5 % (20.0-51.0); MEAN CELL VOLUME 84 fl (80.0-100.0); MEAN CORPUSCULAR HEMOGLOBIN 27 pg (27-31); MEAN CORPUSCULAR HGB CONC 32 g/dl (33.0-37.0); MEAN PLATELET VOLUME 8.7 fl (7.4-10.4); MONO # 0.5 K/mm3 (0.1-0.6); MONO % 10.1 % (1.7-9.3); PLATELET COUNT 151 K/mm3 (130-400); RED BLOOD COUNT 3.81 M/mm3 (4.20-5.60); REDCELL DISTRIBUTION WIDTH-CV 14.7 % (11.5-14.5)
[2023-06-03 07:25] LABS: HEMATOCRIT 32.1 % (42.0-52.0)
[2023-06-03 07:39] LABS: ALBUMIN 3.6 gm/dL (3.4-4.8); BILIRUBIN,TOTAL 1.2 mg/dL (0.2-1.2); CALCIUM 9.6 mg/dL (8.4-10.2); CREATININE, serum 0.82 mg/dL (0.72-1.25); MAGNESIUM 1.5 mg/dL (1.6-2.6)
--- NOTE | 2023-06-03 07:42 | NUR ---
Bedside report received from DUY Zheng. Pt is currently resting in bed with no complaints. Lasix infusing ervin Rt AC at 11 mL/hr with no complications. Call light within reach.
[2023-06-03] MEDS ORDERED: Spironolactone 25 MG TAB PO SCH (08:00)
[2023-06-03] MEDS ORDERED: Cetirizine 10 MG TAB PO SCH (09:00)
[2023-06-03] MEDS ORDERED: Magnesium Sulfate 4% 50 ML IV ONE (09:30)
--- NOTE | 2023-06-03 11:39 | NUR ---
Shift assessment completed. Pt is awake in bed watching tv with no complaints. Lasix infusing into Lt AC with no complications. This nurse attempted to start a new IV into Rt upper extremity with two failed attempts. RN Erin started 22g into Rt AC with no complications. VSS. Last output was recorded of 1400 mL of clear yellow urine. Call light within reach and fall precautions in place.
--- NOTE | 2023-06-03 13:52 | NUR ---
Data: Initially Patient declined Cook Morning visit; however, after some small talk about the football game today, Patient told Cook Morning about his heart valve issues. Assessment: Patient has had previous successful heart valve surgeries. He has a positive outlook about his current issues. He has a very supportive signifanct person in his life. Plan of Care: Cook Morning provided supportive listening. Patient expressed his gratitude for the visit.
--- NOTE | 2023-06-03 14:07 | NUR ---
Vessel Master met with patient and his life partner, Aniyah (ph#[phone]) to discuss discharge planning. Patient lives in [place] and sees Dr. Kennedy for primary care. [facility] Patient uses a CPAP at home as well as a cane for ambulation. Patient is normally independent with ADLS, but has had Aniyah driving him to medical appointments lately due to his medical condition. Patient has DPOA-HC on file designating his partner, Aniyah. Patient plans to return home at time of discharge. Discharge Plan: Home
--- NOTE | 2023-06-03 19:09 | NUR ---
Bedside report given to DUY Zheng. Pt is awake in bed at this time watching tv with no complaints. Lasix infusing into Rt AC at 11 mL with no complications. Call light within reach and fall precautions in place.
[2023-06-04] VITALS (11 sets, daily range): BP systolic 107–122; BP diastolic 65–74; PULSE 69–78; TEMP 97.6–98.3
--- NOTE | 2023-06-04 06:51 | NUR ---
Bedside report recieved from DUY Zheng. Pt has no complaints at this time. Call light within reach.
--- NOTE | 2023-06-04 07:49 | NUR ---
Shift assessment completed. VSS. Pt is awake in bed watching tv at this time. Lasix infusing into Rt AC at 11 mL with no complications. Pt reports no pain at this time. +2 edema to BLE, +1 edema to BUE. Telemetry in place. LCTA. Pt has no request at this time. 450 mL of clear yellow urine emptied from catheter bag. Call light within reach and fall precautions in place.
[2023-06-04 08:21] LABS: BASO % 0.5 % (0.0-2.0); EOS # 0.1 K/mm3 (0.0-0.7); EOS % 2.5 % (0.0-4.0); GRAN % 72.6 % (42.2-75.2); HEMOGLOBIN 10.4 g/dl (13.5-18.0); LYMPH # 0.7 K/mm3 (1.2-3.4); LYMPH % 13.1 % (20.0-51.0); MEAN CELL VOLUME 84 fl (80.0-100.0); MEAN CORPUSCULAR HEMOGLOBIN 27 pg (27-31); MEAN CORPUSCULAR HGB CONC 32 g/dl (33.0-37.0); MEAN PLATELET VOLUME 8.8 fl (7.4-10.4); MONO # 0.6 K/mm3 (0.1-0.6); MONO % 11.1 % (1.7-9.3); PLATELET COUNT 158 K/mm3 (130-400); RED BLOOD COUNT 3.87 M/mm3 (4.20-5.60); REDCELL DISTRIBUTION WIDTH-CV 14.9 % (11.5-14.5)
[2023-06-04 08:27] LABS: HEMATOCRIT 32.4 % (42.0-52.0)
[2023-06-04 08:41] LABS: ALBUMIN 3.7 gm/dL (3.4-4.8); BILIRUBIN,TOTAL 1.3 mg/dL (0.2-1.2); CALCIUM 9.9 mg/dL (8.4-10.2); CREATININE, serum 0.96 mg/dL (0.72-1.25); MAGNESIUM 1.7 mg/dL (1.6-2.6); TOTAL PROTEIN 7.3 gm/dL (6.2-8.1)
[2023-06-04 08:43] LABS: POTASSIUM 2.8 mmol/L (3.5-4.5)
[2023-06-04] MEDS ORDERED: Magnesium Sulfate 4% 50 ML IV ONE (09:00)
[2023-06-04] MEDS ORDERED: Potassium Bicarbonate/Citrate 20 MEQ Effervescent TAB PO SCH (11:00)
--- NOTE | 2023-06-04 18:45 | NUR ---
Bedside report given to DUY Zheng. Pt is awake in bed watching tv with no complaints. Call light within reach.
[2023-06-05] VITALS (12 sets, daily range): BP systolic 108–122; BP diastolic 61–71; PULSE 65–74; TEMP 97.5–98.2
[2023-06-05 07:21] LABS: BASO % 0.8 % (0.0-2.0); EOS # 0.1 K/mm3 (0.0-0.7); EOS % 2.7 % (0.0-4.0); GRAN # 3.4 K/mm3 (1.4-6.5); GRAN % 65.4 % (42.2-75.2); HEMOGLOBIN 10.7 g/dl (13.5-18.0); LYMPH # 0.9 K/mm3 (1.2-3.4); LYMPH % 16.7 % (20.0-51.0); MEAN CELL VOLUME 83 fl (80.0-100.0); MEAN CORPUSCULAR HEMOGLOBIN 27 pg (27-31); MEAN CORPUSCULAR HGB CONC 33 g/dl (33.0-37.0); MEAN PLATELET VOLUME 8.9 fl (7.4-10.4); MONO # 0.7 K/mm3 (0.1-0.6); PLATELET COUNT 150 K/mm3 (130-400); RED BLOOD COUNT 3.96 M/mm3 (4.20-5.60); REDCELL DISTRIBUTION WIDTH-CV 14.7 % (11.5-14.5)
[2023-06-05 07:22] LABS: HEMATOCRIT 32.8 % (42.0-52.0)
[2023-06-05 07:49] LABS: ALBUMIN 3.9 gm/dL (3.4-4.8); BILIRUBIN,TOTAL 1.4 mg/dL (0.2-1.2); CALCIUM 10.1 mg/dL (8.4-10.2); CREATININE, serum 1.17 mg/dL (0.72-1.25); MAGNESIUM 1.9 mg/dL (1.6-2.6); TOTAL PROTEIN 7.7 gm/dL (6.2-8.1)
[2023-06-05 07:52] LABS: POTASSIUM 2.9 mmol/L (3.5-4.5)
[2023-06-05] MEDS ORDERED: Potassium Bicarbonate/Citrate 20 MEQ Effervescent TAB PO SCH (08:00)
[2023-06-05] MEDS ORDERED: Furosemide 80 MG TAB PO SCH (12:00)
[2023-06-05] MEDS ORDERED: metOLazone 2.5 MG TAB PO SCH (12:00)
--- NOTE | 2023-06-05 19:13 | NUR ---
report received from elizabeth joy. pt sitting in recliner talking to family. call light in reach. all needs met at this time.
--- NOTE | 2023-06-05 20:53 | NUR ---
shift assessment complete, see documentation. pt denies pain. pt tolerated hs meds well. pt ambulates with steady gait utilizing gait belt and cane. pt a&o x4. pt resting in bed watching tv. bed alarm on. call light in reach. all needs met at this time.
[2023-06-06] VITALS (7 sets, daily range): BP systolic 103–125; BP diastolic 62–70; PULSE 61–65; TEMP 97.4–98
--- NOTE | 2023-06-06 03:40 | NUR ---
pt pulled external catheter off. he states he wants to wear a brief for possible incontinence and use the bathroom. pt educated on skin breakdown and the importance of changing brief when wet, pt provided education. pt denies pain. bed alarm on. call light in reach. all needs met at this time.
[2023-06-06 06:51] LABS: BASO % 0.6 % (0.0-2.0); EOS # 0.2 K/mm3 (0.0-0.7); GRAN # 3.2 K/mm3 (1.4-6.5); GRAN % 64.2 % (42.2-75.2); HEMOGLOBIN 10.2 g/dl (13.5-18.0); LYMPH # 0.9 K/mm3 (1.2-3.4); LYMPH % 18.1 % (20.0-51.0); MEAN CELL VOLUME 82 fl (80.0-100.0); MEAN CORPUSCULAR HEMOGLOBIN 27 pg (27-31); MEAN CORPUSCULAR HGB CONC 32 g/dl (33.0-37.0); MEAN PLATELET VOLUME 8.7 fl (7.4-10.4); MONO # 0.6 K/mm3 (0.1-0.6); MONO % 12.9 % (1.7-9.3); PLATELET COUNT 150 K/mm3 (130-400); RED BLOOD COUNT 3.84 M/mm3 (4.20-5.60); REDCELL DISTRIBUTION WIDTH-CV 14.6 % (11.5-14.5)
[2023-06-06 07:01] LABS: HEMATOCRIT 31.6 % (42.0-52.0)
[2023-06-06 07:17] LABS: ALBUMIN 3.9 gm/dL (3.4-4.8); BILIRUBIN,TOTAL 1.3 mg/dL (0.2-1.2); CALCIUM 9.7 mg/dL (8.4-10.2); CREATININE, serum 1.36 mg/dL (0.72-1.25); POTASSIUM 3.1 mmol/L (3.5-4.5); TOTAL PROTEIN 7.6 gm/dL (6.2-8.1)
[2023-06-06] MEDS ORDERED: Potassium Bicarbonate/Citrate 20 MEQ Effervescent TAB PO SCH (08:30)
[2023-06-06] MEDS ORDERED: ASPIRIN E.C. 8181 MG PO (09:40)
[2023-06-06] MEDS ORDERED: K-TAB20 PO (09:41)
[2023-06-06] MEDS ORDERED: SYNTHROID0.112 MG/T PO (10:04)
--- NOTE | 2023-06-06 11:38 | NUR ---
flour worker attended rounding and was informed pt can discharge home today. OT/PT evals reccomend home. Discharge Plan: Home
[2023-06-06] MEDS ORDERED: ZAROXOLYN5 MG PO (13:08)
[2023-06-06] MEDS ORDERED: ALDACTONE 25MG25 M1 PO (13:08)
--- NOTE | 2023-06-06 15:41 | NUR ---
ON 06/06/23 HOSPITALIST WAS NOTIFIED @ 8338 OF CRITICAL CL LEVEL
--- NOTE | 2023-06-06 15:41 | NUR ---
ON 06/05/23 HOSPITALIST WAS NOTIFIED OF CRITICAL CL LEVEL WITHIN HOUR OF NOTIFICATION FROM LAB
== END 2023-06-06 15:16 | disposition home or self-care (01) | DRG 292 ==
LOC: MEDICAL 16:18
PROVIDERS: ADMIT Hospitalist
DX: I50.33 Acute on chronic diastolic (congestive) heart failure (principal); C15.9 Malignant neoplasm of esophagus, unspecified; I27.20 Pulmonary hypertension, unspecified; I08.1 Rheumatic disorders of both mitral and tricuspid valves; E87.6 Hypokalemia; E83.42 Hypomagnesemia; I48.91 Unspecified atrial fibrillation; E05.90 Thyrotoxicosis, unspecified without thyrotoxic crisis or storm; J44.9 Chronic obstructive pulmonary disease, unspecified; G47.33 Obstructive sleep apnea (adult) (pediatric); M16.12 Unilateral primary osteoarthritis, left hip; M10.9 Gout, unspecified
CPT/HCPCS: J1650; J1940; J3475

== ENCOUNTER 2023-06-20 12:41 | Outpatient (RCR) | payer MEDICARE, OTHER ==
[~2023-06-20 12:41] MED LIST changes: +SYNTHROID0.112 MG/T PO; +ZAROXOLYN5 MG PO
[2023-06-20] MEDS ORDERED: Iron Sucrose 200 MG in NS 100 ML Over 15 minutes IV ONE (13:00)
[2023-06-20] MEDS ORDERED: diphenhydrAMINE 50 MG/ML 1 ML VIAL IV PRN (13:15)
[2023-06-20 13:24] VITALS: BP 98/57; PULSE 68; TEMP 98
== END 2023-06-20 16:00 | disposition home or self-care (01) ==
LOC: EUO 12:41
DX: D50.9 Iron deficiency anemia, unspecified (principal)
CPT/HCPCS: J1756